=== PATIENT | female | born 1980 | race Hispanic/Latino ===

== ENCOUNTER 2020-01-20 09:53 | Emergency (ER) | payer OTHER ==
[~2020-01-20] VITALS: Ht 172.7 cm; Wt 72.6 kg
--- NOTE | 2020-01-20 10:47 | NUR ---
flu neg strep neg
--- NOTE | 2020-01-20 10:50 | Emergency Department Note ---
History of Present Illnes History of Present Illness Chief Complaint: sent by employee to be elevated for cold like symptoms History of Present Illness This is a 39 year old female. h/o covid in october. then symptoms resolved. then 1 day ago then f/c/runny nose, st, fatigue Historian: Patient Arrival Mode: Car History limited by: condition of the patient (normal) Blood Bank Laboratory Professional Required: No Onset (how long ago): day(s) (1) Location: n/a Quality: n/a Radiation: Denies non-radiation Severity: mild Onset quality: gradual Duration (how long): day(s) (1) Timing of current episode: intermittent Progression: worsening Chronicity: new Context: Reports recent illness; Denies recent surgery, Denies recent immobilization, Denies recent travel, Denies trauma/injury, Denies new medications, Denies hx of DVT/PE, Denies non- compliance w/ medications Relieving factors: none Exacerbating factors: none Associated symptoms: Reports fever/chills Treatments prior to arrival: none Past Medical/Family History Physician Review I have reviewed the patient's past medical and family history. Any updates have been documented here. Past Medical History Recent Fever: No Clinical Suspicion of Infectio: No New/Unexplained Change in Ment: No Past Medical History: None Past Surgical History: None Social History Smoking Cessation: Never Smoker Counseling Performed: No Alcohol Use: None Any Illegal Drug Use: No Physically hurt or threatened: No Other Any Pre-Existing Lines (PICC,: No Review of Systems Review of Systems Constitutional: Reports as per HPI EENTM: Reports as per HPI Cardiovascular: Reports no symptoms Respiratory: Reports no symptoms Gastrointestinal: Reports no symptoms Genitourinary: Reports no symptoms Musculoskeletal: Reports no symptoms Integumentary: Reports no symptoms Neurological: Reports no symptoms Psychological: Reports no symptoms Endocrine: Reports no symptoms Hematological/Lymphatic: Reports no symptoms Review of other systems: All other systems negative Physical Exam Related Data Allergies: Coded Allergies: No Known Allergies (Unverified , 01/20/20) Triage Vital Signs Vital Signs Date Time Temp Pulse Resp B/P (MAP) Pulse Ox O2 Delivery O2 Flow Rate FiO2 01/20/20 10:03 99.2 85 16 113/77 100 Room Air Vital signs reviewed: Yes Physical Exam CONSTITUTIONAL Constitutional: Present well-developed, Present well-nourished HENT HENT: Present normocephalic, Present atraumatic, Present nose normal, Present erythema (pharyngeal) HENT L/R: Present left ext ear normal, Present right ext ear normal EYES Eyes: Reports PERRL, Reports conjunctivae normal NECK Neck: Present ROM normal, Present supple PULMONARY Pulmonary: Present effort normal, Present breath sounds normal CARDIOVASCULAR Cardiovascular: Present regular rhythm, Present heart sounds normal, Present capillary refill normal, Present normal rate GASTROINTESTINAL Abdominal: Present soft, Present nontender, Present bowel sounds normal GENITOURINARY Genitourinary: Present exam deferred SKIN Skin: Present warm, Present dry MUSCULOSKELETAL Musculoskeletal: Present ROM normal NEUROLOGICAL Neurological: Present alert, Present oriented x 3, Present no gross motor or sensory deficits PSYCHOLOGICAL Psychological: Present mood/affect normal, Present judgement normal Results Laboratory Lab results reviewed: Yes Laboratory comments influenza and strep test normal Assessment & Plan Medical Decision Making MDM see below Assessment & Plan Final Impression: (1) Pharyngitis (2) URI (upper respiratory infection) Depart Disposition: HOME, SELF-CARE Last Vital Signs Date Time Temp Pulse Resp B/P (MAP) Pulse Ox O2 Delivery O2 Flow Rate FiO2 01/20/20 10:03 99.2 85 16 113/77 100 Room Air Home Meds Active Scripts Prednisone (PREDNISONE) 20 Mg Tab, 60 MG PO DAILY, #15 TAB TAKE ALL 3 20 MG PILLS AT ONCE Prov:KIAN JACKSON 01/20/20 Azithromycin (AZITHROMYCIN) 500 Mg Tablet, 500 MG PO DAILY, #5 TAB Prov:KIAN JACKSON 01/20/20 KIAN JACKSON Jan 20, 2020 10:50
[2020-01-20] MEDS ORDERED: PREDNISONE20 MG PO (10:54)
[2020-01-20] MEDS ORDERED: AZITHROMYCIN500 MG PO (10:54)
--- OUTSIDE RECORDS SUMMARY | 2020-01-20 11:34 | XMS REPORT | Continuity of Care Document ---
Author Author [facility] t Organization [facility] Address [address] [place] [address] Phone Unavailable Care Team Providers Care Fitness Assistant Name Role Phone Unavailable Unavailable Payers Payer Name Policy Type Policy Number Effective Date Expiration Date Harsh JACKSON - MGD [employer] HMO/POS/OPEN [id number]/04/2019 -PresentHMO/POS [id number] 2019 00:00:00 [facility] CDC REVIEWCDC [id number] [address] [id number] 2019 00:00:00 [facility] Problems This patient has no known problems. Allergies, Adverse Reactions, Alerts This patient has no known allergies or adverse reactions. Social History Social Habit Start Date Stop Date Quantity Comments Source Sex Assigned At [facility] Medications This patient has no known medications. Procedures Procedure Date / Time Performed Performing Clinician Sour e SARS-COV2/RT-PCR ([facility]) 2019-11-04 14:52:18 Eduard Reyes [facility] SARS-COV-2(COVID19)HIGHRISKRT-PCR 2019-11-04 14:52:00 Roosevelt Reyes [facility] SARS-COV2/RT-PCR ([facility]) 2019-10-22 14:21:11 Eduard Reyes [facility] SARS-COV-2(COVID19)HIGHRISKRT-PCR 2019-10-22 14:21:00 Roosevelt Reyes [facility] SARS-COV2/RT-PCR ([facility]) 2019-10-08 07:35:22 Eduard Reyes [facility] SARS-COV2/RT-PCR ([facility]) 2019-09-23 08:26:02 Eduard Reyes [facility] Results Test Description Test Time Test Comments Results Result Comments Source SARS-COV-2(COVID19)HIGHRISKRT-PCR 2019-11-05 07:17:00 Test Item Source (test code = 38041-9) NOT SPECIFIED Note: Methodology is Paige Kay Real-Time RT-PCR. The expected result or reference range is NEGATIVE (Not Detected). For more information regarding COVID-19 testing to include clinicalinformation, methodology detail, intended use, FDA authorization andrecommended fact sheets for patients or healthcare providers, see [employer] Announcement: SARS-CoV-2 (COVID-19) by NAAT at URL below (note,fact sheets are provided by method given in report:[email or web address]/[email or web address] communications/ Alternatively, see downloadable PDF fact sheet at:[email or web address]/[email or web address]-[place]-PCR SARS-COV-2 INTERPRETATION (test code = 65381-9) POSITIVE A SARS-CoV-2 RNA DETECTEDPositive results are indicative of the presence of SARS-CoV-2 RNA;clinical correlation with patient history and other diagnosticinformation is necessary to determine patient infection status.Positive results do not rule out bacterial infection or co-infectionwith other viruses. Positive and negative predictive values oftesting are highly dependent on prevalence. Lab Interpretation (test code = 04953-8) Abnormal [facility])2019-11-04 16:32:00* Test Item Value Reference Range Interpretation Comments SARS-COV2/RT-PCR (test code = 17454-9) See external report f or linked test Not Detected, Negative, See external report for linked test SARS-COV-2 PERFORMING LAB (test code = 25094-3) [facility] [place])2019-11-04 16:32:00* Test Item Value Reference Range Interpretation Comments SARS-COV2/RT-PCR (test code = 3334347) See external report f or linked test Not Detected, Negative, See external report for linked test SARS-COV-2 PERFORMING LAB (test code = 9136231) CPL SARS-COV2/RT-PCR ([facility])2019-10-22 16:04:00* Test Item Value Reference Range Interpretation Comments SARS-COV2/RT-PCR (test code = 3243203) See external report f or linked test Not Detected, Negative, See external report for linked test SARS-COV-2 PERFORMING LAB (test code = 4900979) [facility]PL SARS-COV2/RT-PCR ([facility])2019-10-09 09:15:00* Test Item Value Reference Range Interpretation Comments SARS-COV2/RT-PCR (test code = 2557043) Negative Not Detected, N egative SARS-COV-2 PERFORMING LAB (test code = 1467666) CPL SARS-COV2/RT-PCR ([facility])2019-09-27 13:22:00* Test Item Value Reference Range Interpretation Comments SARS-COV2/RT-PCR (test code = 4798263) Negative Not Detected, N egative SARS-COV-2 PERFORMING LAB (test code = 8713586) [facility]
--- OUTSIDE RECORDS SUMMARY | 2020-01-20 11:34 | XMS REPORT | Clinical Summary ---
Author Author [facility] Address Unknown Phone Unavailable Care Team Providers Care Infantryman Name Role Phone PCP Unavailable Allergies Not on File Medications Not on file Active Problems Not on file Encounters Care Team Description Date Type Specialty Exposure to SARS-associated coronavirus (Primary Dx) 11/04/2019 Clinical [facility] Support Exposure to SARS-associated coronavirus (Primary Dx) 10/22/2019 Clinical Urgent Care Support Exposure to SARS-associated coronavirus (Primary Dx) 10/08/2019 Clinical Urgent Care Support Exposure to SARS-associated coronavirus (Primary Dx) 09/23/2019 Clinical Urgent Care Support after 01/19/2019 Social History Date Tobacco Use Types Packs/Day Years Used Never Assessed Sex Assigned at Date Recorded Not on file Last Filed Vital Signs Not on file Plan of Treatment Not on file Procedures Comments Procedure Name Priority Date/Time Associated Diag nosis SARS-COV2/RT-PCR ([facility] Routine 11/04/2019 Expos ure to REF LABS) 2:52 PM CDT SARS-[facility] Expo sure to SKRT-PCR 2:52 PM CDT SARS-associated coronavirus SARS-COV2/RT-PCR ([facility] & Routine 10/22/2019 Expos ure to REF LABS) 2:21 PM CDT SARS-associated coronavirus SARS-COV-2(COVID19)[facility] Routine 10/22/2019 Expo sure to SKRT-PCR 2:21 PM CDT SARS-associated coronavirus SARS-COV2/RT-PCR ([facility] & Routine 10/08/2019 Expos ure to REF LABS) 7:35 AM CDT SARS-associated coronavirus SARS-COV2/RT-PCR ([facility] & Routine 09/23/2019 Expos ure to REF LABS) 8:26 AM CDT SARS-associated coronavirus after 01/19/2019 Results * SARS-CoV2/RT-PCR ([facility]) (11/04/2019 2:52 PM CDT) Only the most recent of 4 results within the time period is included. SARS-COV2/RT-PC See external report for linked Not Detected, [facility] R test Negative, See [facility] external report for MEDICAL CENTER linked test SARS-COV-2 CPL [facility] PERFORMING LAB [facility] Specimen Other - Nasopharyngeal wall structure (body structure) Performing Organization Address City/State/Zipcode Ph one Number [place] [address] [facility] * SARS-COV-2(COVID19)HIGHRISKRT-PCR (11/04/2019 2:52 PM CDT) Only the most recent of 2 results within the time period is included. Source NOT SPECIFIED [facility] Comment: Note: Methodology is Paige Kay Real-Time RT-PCR. The expected result or reference range is NEGATIVE (Not Detected). For more information regarding COVID-19 testing to include clinical information, methodology detail, intended use, FDA authorization and recommended fact sheets for patients or healthcare providers, see New Test Announcement: SARS-CoV-2 (COVID-19) by NAAT at URL below (note, fact sheets are provided by method given in report: [email or web address] [email or web address]/client-communications/ Alternatively, see downloadable PDF fact sheet at: [email or web address]/[email or web address]- [email or web address]-RT-PCR SARS-COV-2 POSITIVE (A) [facility] INTERPRETATION Comment: SARS-CoV-2 RNA DETECTED Positive results are indicative of the presence of SARS-CoV-2 RNA; clinical correlation with patient history and other diagnostic information is necessary to determine patient infection status. Positive results do not rule out bacterial infection or co-infection with other viruses. Positive and negative predictive values of testing are highly dependent on prevalence. Specimen Other - Nasopharyngeal wall structure (body structure) Performing Organization Address City/State/Zipcode Ph one Number [facility] [address] [place] [phone] after 01/19/2019 Insurance Type Payer Benefit Subscriber ID Effective Phone Address Plan / Dates Group HMO/POS CIG[employer] - MGD CARE CIGNA [id number] 2019-P HMO/POS/OP resent EN ACCESS CDC REVIEW CDC REVIEW [id number] 2019[place] [place] [address] CDC REVIEW CDC REVIEW [id number] 2019[place] [address]
== END 2020-01-20 10:35 | disposition home or self-care (01) ==
LOC: FSED 10:32
DX: J02.9 Acute pharyngitis, unspecified (principal); J06.9 Acute upper respiratory infection, unspecified; R50.9 Fever, unspecified
CPT/HCPCS: 81003; 81025; 83518; 87400; 99283

== ENCOUNTER 2021-05-27 23:26 | Emergency (ER) | payer OTHER ==
[~2021-05-27] VITALS: Ht 172.7 cm; Wt 72.6 kg
[~2021-05-27 23:26] MED LIST: AZITHROMYCIN500 MG PO; PREDNISONE20 MG PO
== END 2021-05-28 01:04 | disposition home or self-care (01) ==
LOC: ER 23:32
DX: S06.0X0A Concussion without loss of consciousness, initial encounter (principal); R51.9 Headache, unspecified; W22.8XXA Striking against or struck by other objects, initial encounter; Y99.0 Civilian activity done for income or pay
CPT/HCPCS: 70450; 99283